=== PATIENT | female | born 1990 | race Caucasian/White ===

== ENCOUNTER 2020-10-09 13:25 | Emergency (ER) | payer SELFPAY ==
[~2020-10-09] VITALS: Ht 167.6 cm; Wt 64.0 kg
[2020-10-09] MEDS ORDERED: ONDANSETRON HCL 4MG/2ML INJ IV STA (13:37)
[2020-10-09] MEDS ORDERED: SODIUM CHLORIDE 0.9% 1,000 ML IV ONE (13:45)
[2020-10-09 14:38] LABS: BASOPHILS % 0.9 % (0.0-2.0); EOSINOPHILS % 1.1 % (0.0-5.0); HEMATOCRIT. 34.7 % (36.0-48.0); HEMOGLOBIN. 11.5 g/dL (12.0-16.0); LYMPHOCYTES % 33.1 % (20.0-50.0); MEAN CORPUSCULAR VOLUME 75.6 fL (81.0-99.0); MEAN PLATELET VOLUME 8.4 fl (7.4-10.4); MONOCYTES % 5.7 % (2.0-8.0); NEUTROPHILS % 59.2 % (40.0-76.0); PLATELET 183 x1000/uL (130-400); RED BLOOD CELL COUNT 4.59 mill/uL (4.2-5.4); RED CELL DISTRIBUTION WIDTH 16.7 % (11.6-14.6)
[2020-10-09 14:45] LABS: CHLORIDE 108 mEq/L (98-107)
[2020-10-09 14:47] LABS: PROTHROMBIN TIME 10.5 sec (9.6-11.0)
[2020-10-09 14:48] LABS: HCG SCREEN NEGATIVE
[2020-10-09 14:49] LABS: ETHANOL BLOOD < 10 mg/dL
[2020-10-09] MEDS ORDERED: SODIUM CHLORIDE 0.9% 1,000 ML IV NR (15:15)
[2020-10-09] MEDS ORDERED: ACETAMINOPHEN 325MG TABLET PO ONE (16:45)
[2020-10-09] MEDS ORDERED: ACET-2708 MT (17:20)
[2020-10-09 18:00] VITALS: BP 98/49
== END 2020-10-09 18:22 | disposition home or self-care (01) ==
LOC: ER 13:25
DX: R55 Syncope and collapse (principal); Z90.49 Acquired absence of other specified parts of digestive tract
CPT/HCPCS: 36415; 71045; 80053; 80320; 81025; 83690; 84703; 85025; 85610; 96374; 99284; J2405; J7030; G0480